=== PATIENT | male | born 1995 | race Caucasian/White ===

== ENCOUNTER 2016-12-20 12:35 | Emergency (ER) | payer OTHER ==
[~2016-12-20 12:35] MED LIST: ACIDOPHILUS1 EAC4 PO; CARAFATE1 GM PO; GI COCKTAIL PO; PHENERGAN25 M1 PO; PROTONIX40 MG PO; QUESTRAN PACKET4 GM PO; ZOFRAN4 MG PO
== END 2016-12-20 13:11 | disposition home or self-care (01) ==
LOC: ER 12:35
DX: S50.862A Insect bite (nonvenomous) of left forearm, initial encounter (principal); W57.XXXA Bitten or stung by nonvenomous insect and other nonvenomous arthropods, initial encounter; Z90.49 Acquired absence of other specified parts of digestive tract
CPT/HCPCS: 99282